=== PATIENT | female | born 1995 ===

== ENCOUNTER 2017-06-05 01:56 | Emergency (ER) | payer SELFPAY ==
[2017-06-05 02:04] VITALS: BP 125/73; PULSE 82; RESP 14; TEMP 98.4; O2SAT 100
--- NOTE | 2017-06-05 02:23 | ED PDOC ---
HPI: Chest Pain Time Seen by Provider: 06/05/17 02:05 Chief Complaint (Nursing): Chest Pain Chief Complaint (Provider): Chest Pain History Per: Patient, Family History/Exam Limitations: no limitations Onset/Duration Of Symptoms: Days Current Symptoms Are (Timing): Still Present Associated Symptoms: denies: Nausea Additional Complaint(s): 21 y/o female patient presenting to the ED with chest pain. Patient states that she was awoken in the middle of the night with chest pain and nasal congestion. She also reports sinusitis and breathing throught her mouth. She states this has been going on for a few nights and her boyfriend also reports tht the patient has been coughing while she is asleep. Patient denies fever but reports chills. Patient denies any past medical history. Past Medical History Reviewed: Historical Data, Nursing Documentation, Vital Signs Vital Signs: Last Vital Signs Temp 98.4 F 06/05/17 02:00 Pulse 82 06/05/17 02:00 Resp 14 06/05/17 02:00 BP 125/73 06/05/17 02:00 Pulse Ox 100 06/05/17 02:26 - Medical History PMH: No Chronic Diseases - Surgical History Surgical History: Appendectomy - Family History Family History: States: Unknown Family Hx - Living Arrangements Living Arrangements: With Family - Social History Current smoker - smoking cessation education provided: No Alcohol: None Drugs: Denies - Home Medications Home Medications: Ambulatory Orders Medication Instructions Recorded DiphenhydrAMINE [Benadryl] 50 mg PO Q6 PRN #20 cap 07/24/14 Prednisone 60 mg PO DAILY #12 tab 07/24/14 Fluticasone Propionate [Flonase] 1 spr IN DAILY #1 bottle 06/05/17 - Allergies Allergies/Adverse Reactions: Allergies Allergy/AdvReac Type Severity Reaction Status Date / Time pollen extracts Allergy ITCHING Verified 06/05/17 01:59 Review of Systems ROS Statement: Except As Marked, All Systems Reviewed And Found Negative Constitutional: Positive for: Chills. Negative for: Fever ENT: Positive for: Nose Congestion, Other ((+)Sinusitis) Cardiovascular: Positive for: Chest Pain Respiratory: Positive for: Cough Physical Exam - Reviewed Nursing Documentation Reviewed: Yes Vital Signs Reviewed: Yes - Physical Exam Appears: Positive for: Non-toxic, No Acute Distress Head Exam: Positive for: ATRAUMATIC, NORMAL INSPECTION, NORMOCEPHALIC Skin: Positive for: Normal Color, Warm, Dry Eye Exam: Positive for: Normal appearance ENT: Positive for: Normal ENT Inspection Neck: Positive for: Normal, Painless ROM, Supple Cardiovascular/Chest: Positive for: Regular Rate, Rhythm. Negative for: Murmur Respiratory: Positive for: Normal Breath Sounds. Negative for: Wheezing, Respiratory Distress Neurologic/Psych: Positive for: Alert, Oriented. Negative for: Motor/Sensory Deficits - ECG O2 Sat by Pulse Oximetry: 100 (RA) Pulse Ox Interpretation: Normal Medical Decision Making Medical Decision Making: Time: 211 Initial impression: Upper Respiratory Infection, Sinusitis PostNasal Drip Initial plan: --EKG --EKG-ED --CHEST TWO VIEWS XRAY 0330:Discharge Instructions: Re-evaluation. Patient feels better. Discussed results and plan with patient who expresses understanding. Counseling was provided regarding the diagnosis and prognosis. All questions answered and there is agreement with the plan to discharge home with instructions. Patient stable for discharge. Return if symptoms persist or worsen. Scribe Attestation: Documented by Kateryna Carey, acting as a scribe for Dion Alexander MD. Scribe Attestation: All medical record entries made by the Scribe were at my direction and personally dictated by me. I have reviewed the chart and agree that the record accurately reflects my personal performance of the history, physical exam, medical decision making, and the department course for this patient. I have also personally directed, reviewed, and agree with the discharge instructions and disposition. Disposition - Clinical Impression Clinical Impression: Chest wall pain - Patient ED Disposition Is Patient to be Admitted: No - Disposition Referrals: [facility] [Outside] Disposition Time: 03:30 Condition: STABLE Prescriptions: Fluticasone Propionate [Flonase] 1 spr IN DAILY #1 bottle Instructions: Sinusitis (ED), Noncardiac Chest Pain (ED) Forms: [employer] (Romansh)
--- NOTE | 2017-06-05 10:22 | RAD ---
HISTORY: cp COMPARISON: No prior. TECHNIQUE: Chest PA and lateral FINDINGS: LUNGS: No active pulmonary disease. PLEURA: No significant pleural effusion identified. No pneumothorax apparent. CARDIOVASCULAR: Normal. OSSEOUS STRUCTURES: No significant abnormalities. VISUALIZED UPPER ABDOMEN: Normal. OTHER FINDINGS: None. IMPRESSION: No active disease.
--- NOTE | 2017-06-06 13:25 | CARD ---
APPROVED REPORT EKG Measurement Heart [id number] <Conclusion> Normal sinus rhythm with sinus arrhythmia Normal ECG
== END 2017-06-05 03:15 | disposition home or self-care (01) ==
LOC: H.ER 01:56
DX: J32.9 Chronic sinusitis, unspecified (principal); R07.89 Other chest pain; R05 Cough

== ENCOUNTER 2019-02-05 14:47 | Emergency (ER) | payer OTHER ==
[2019-02-05 14:54] VITALS: BP 128/71; PULSE 88; RESP 18; TEMP 98.5; O2SAT 100
[2019-02-05 14:55] VITALS: BMI 37.5
--- NOTE | 2019-02-05 15:51 | ED PDOC ---
HPI: Skin/Bite Injury Time Seen by Provider: 02/05/19 14:59 Chief Complaint (Nursing): Abnormal Skin Integrity Chief Complaint (Provider): Abnormal Skin Integrity History Per: Patient History/Exam Limitations: no limitations Onset/Duration Of Symptoms: Days (x2 weeks) Current Symptoms Are (Timing): Still Present Additional Complaint(s): 23 year old female presents to the ED for evaluation of bilateral nipple dryness and itchiness for the past two weeks. Patient denies any new exposures, breast feeding, nipple discharge, chest pain, and shortness of breath. PMD: none provided Past Medical History Reviewed: Historical Data, Nursing Documentation, Vital Signs Vital Signs: Last Vital Signs Temp 98.5 F 02/05/19 14:53 Pulse 88 02/05/19 14:53 Resp 18 02/05/19 14:53 BP 128/71 02/05/19 14:53 Pulse Ox 100 02/05/19 14:53 - Medical History PMH: No Chronic Diseases - Surgical History Surgical History: Appendectomy - Family History Family History: States: Unknown Family Hx - Social History Current smoker - smoking cessation education provided: No Alcohol: None Drugs: Denies - Home Medications Home Medications: Ambulatory Orders Medication Instructions Recorded DiphenhydrAMINE [Benadryl] 50 mg PO Q6 PRN #20 cap 07/24/14 Prednisone 60 mg PO DAILY #12 tab 07/24/14 Fluticasone Propionate [Flonase] 1 spr IN DAILY #1 bottle 06/05/17 Hydrocortisone 0.5% CREAM 1 applic EXT BID #1 tube 02/05/19 [Cortizone 0.5% CREAM] - Allergies Allergies/Adverse Reactions: Allergies Allergy/AdvReac Type Severity Reaction Status Date / Time pollen extracts Allergy ITCHING Verified 06/05/17 01:59 Review of Systems ROS Statement: Except As Marked, All Systems Reviewed And Found Negative Cardiovascular: Negative for: Chest Pain Respiratory: Negative for: Shortness of Breath Skin: Positive for: Other (dry, itchy nipples, (-) discharge) Physical Exam - Reviewed Nursing Documentation Reviewed: Yes Vital Signs Reviewed: Yes - Physical Exam Appears: Positive for: No Acute Distress Head Exam: Positive for: ATRAUMATIC, NORMOCEPHALIC Skin: Positive for: Warm, Dry Eye Exam: Positive for: Normal appearance Neck: Positive for: Normal, Painless ROM, Supple Cardiovascular/Chest: Positive for: Regular Rate, Rhythm, Chest Non Tender, Other (RN Nelsy present for breast exam: (+) bilateral nipples with dryness and an outline of glandular shapes that patient notes is pruritic) Respiratory: Positive for: Normal Breath Sounds. Negative for: Respiratory Distress Gastrointestinal/Abdominal: Positive for: Normal Exam, Soft. Negative for: Tenderness Back: Positive for: Normal Inspection Extremity: Positive for: Normal ROM (upper/lower bilateral) Neurological/Psych: Positive for: Awake, Alert, Symmetric/Intact Strength (upper/lower bilateral extremities), Oriented (x3). Negative for: Motor/Sensory Deficits - ECG O2 Sat by Pulse Oximetry: 100 (RA) Pulse Ox Interpretation: Normal Medical Decision Making Medical Decision Making: Time: 1554 Initial Impression: dry, itchy skin to nipples, possible eczema, mastitis, less likely breast cancer Initial Plan: --Extensive conversation had with patient about several differential diagnosis that her symptoms could be indicative of, such as eczema, mastitis, and much less likely breast cancer. All questions answered. Urged patient [facility] as possible for further evaluation that is not done in the ED. Patient verbalized understanding and agreement with plan and discharge. Scribe Attestation: Documented by Debo Whitmore, acting as a scribe for Manjeet Tovar PA-C. Provider Scribe Attestation: All medical record entries made by the Scribe were at my direction and personally dictated by me. I have reviewed the chart and agree that the record accurately reflects my personal performance of the history, physical exam, medical decision making, and the department course for this patient. I have also personally directed, reviewed, and agree with the discharge instructions and disposition. Disposition - Clinical Impression Clinical Impression: Breast anomaly - Disposition Referrals: [facility] [Outside] [facility] Disposition: Routine/Home Disposition Time: 16:33 Condition: STABLE Prescriptions: Hydrocortisone 0.5% CREAM [Cortizone 0.5% CREAM] 1 applic EXT BID #1 tube Instructions: Mammography, Mastalgia, Common Breast Problems Forms: [employer] (Setswana)
--- NOTE | 2019-02-05 16:00 | ED PDOC ---
HPI: Allergic Reaction Time Seen by Provider: 02/05/19 14:59 Chief Complaint (Nursing): Abnormal Skin Integrity Past Medical History Vital Signs: Last Vital Signs Temp 98.5 F 02/05/19 14:53 Pulse 88 02/05/19 14:53 Resp 18 02/05/19 14:53 BP 128/71 02/05/19 14:53 Pulse Ox 100 02/05/19 14:53 - Surgical History Surgical History: Appendectomy - Family History Family History: States: Unknown Family Hx - Home Medications Home Medications: Ambulatory Orders Medication Instructions Recorded DiphenhydrAMINE [Benadryl] 50 mg PO Q6 PRN #20 cap 07/24/14 Prednisone 60 mg PO DAILY #12 tab 07/24/14 Fluticasone Propionate [Flonase] 1 spr IN DAILY #1 bottle 06/05/17 - Allergies Allergies/Adverse Reactions: Allergies Allergy/AdvReac Type Severity Reaction Status Date / Time pollen extracts Allergy ITCHING Verified 06/05/17 01:59 - ECG O2 Sat by Pulse Oximetry: 100 Disposition - Disposition Forms: [employer] ([place])
== END 2019-02-05 16:37 | disposition home or self-care (01) ==
LOC: H.ER 14:47
DX: Q83.9 Congenital malformation of breast, unspecified (principal)